=== PATIENT | female | born 1985 | race Hispanic/Latino ===

== ENCOUNTER 2023-02-12 13:40 | Emergency (ER) | payer MEDICAID, OTHER ==
[~2023-02-12] VITALS: Ht 165.1 cm; Wt 95.3 kg
[2023-02-12 13:43] VITALS: BP 116/68; PULSE 76; RESP 16
[2023-02-12] MEDS ORDERED: IBUP-2070 PO (16:14)
== END 2023-02-12 16:36 | disposition home or self-care (01) ==
LOC: EDH 13:40
DX: S89.82XA Other specified injuries of left lower leg, initial encounter (principal); Z98.890 Other specified postprocedural states; W18.39XA Other fall on same level, initial encounter; Y93.89 Activity, other specified; Y92.89 Other specified places as the place of occurrence of the external cause; Y99.8 Other external cause status
CPT/HCPCS: 73560